=== PATIENT | male | born 1965 | race Caucasian/White ===

== ENCOUNTER → 2017-10-27 | Outpatient (CLI) | payer OTHER ==
--- NOTE | 2017-10-28 08:55 | DIAGNOSTIC IMAGING REPORT ---
LEFT HIP INJECTION UNDER FLUOROSCOPIC GUIDANCE CLINICAL HISTORY: Degenerative joint disease. Left hip steroid injection. PROCEDURE: The risks, benefits, and alternatives to the procedure were discussed with the patient. Written informed consent was obtained. The patient was placed supine on the fluoroscopy table, and a left hip injection was performed under fluoroscopic guidance. The area was prepped and draped in the usual sterile fashion. The skin and soft tissues anesthetized with local 1% lidocaine. The left hip joint was accessed utilizing a 22-gauge needle, and intra-articular positioning was confirmed by injecting a small volume of Optiray 300. The prescribed dosage of 2 cc of betamethasone and 8 cc of 0.5% bupivacaine was then injected into the joint space. The procedure was well tolerated and without immediate complication. The patient left the department in satisfactory condition. FLUOROSCOPY TIME: 14 seconds IMPRESSION: Unremarkable steroid injection of the left hip under fluoroscopic guidance. Electronically signed by: Fredrick Dean M.D. 10/27/2017 11:18 AM Dictated Date/Time: 10/27/2017 11:16 AM
== END | disposition home or self-care (01) ==
LOC: C.RADBC 09:42
PROVIDERS: ATTEND Orthopaedic Surgery Orthopaedic Surgery of the Spine
DX: M25.552 Pain in left hip (principal)

== ENCOUNTER 2019-02-21 06:26 | Inpatient (IN) ==
--- NOTE | 2019-01-30 14:43 | PAT Medication Instructions ---
Medication Instructions Date of Service January 30, 2019 Home Medications multivitamin [Multiple Vitamins] 1 tab PO DAILY DO NOT take the morning of surgery multivitamin [Multiple Vitamins] 1 tab PO DAILY Other Notes If you have any questions please call us at [phone] or [phone] or [phone] or [phone]
--- NOTE | 2019-01-31 08:26 | Anesthesiology Consultation ---
Date of Service January 31, 2019 Assessment & Plan (1) Encounter for pre-operative examination: Note sent to PCP to inform him of CXR results. Chart Review Chart Review: Acceptable Risk for Surgery and Patient seen in Pre Admission Te sting Consults Requested none Teaching & Discussion Pre-Anesthesia Teaching/Discussion Notes: Instructed NPO after midnight before surgery, except medications with 15 cc of water. Medication instructions provided according to the PAT guidelines. History Surgery Operation Date: 02/21/19 09:05 Proposed Procedures p Left Total Hip Arthroplasty - Anurag Magaña MD Height/Weight Height: 5 ft 8 in Weight: 84.4 kg Allergies Allergy/AdvReac Type Severity Reaction Status Date / Time Penicillins Allergy Unknown pt not Unverified 01/25/19 08:26 sure reaction Medications Home Medications Medication Instructions Recorded Confirmed Last Taken multivitamin [Multiple Vitamins] 1 tab PO DAILY 01/25/19 01/25/19 Unknown Past Medical History Medical History Alcohol abuse Osteoarthritis Past Surgical History Surgical History History of tonsillectomy History of wisdom tooth extraction Past Anesthesia History No Hx of Anesthesia Complications and No Family Hx of Anesthesia Complications History of PONV No Motion Sickness Screening History of Motion Sickness: No Social History Smoking Status: Never smoker Do You Dip or Chew Tobacco: Yes (ON OCC - 1 CAN OVER MONTH ON AVERAGE OR LESS - ADVISED NPO) Hx Alcohol Use: Yes Alcohol type: beer alcohol intake frequency: other Alcohol Intake Frequency Comment: 30 CANS A WEEK Hx Substance Use: No substance use type: does not use Exercise / Class Metabolic Activity II 4-5 Yardwork/Stairs/Walk up hill (Able to climb FOS. Denies CP or SOB. 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 ) Review of Systems Patient denies chest pain, shortness of breath, dyspnea on exertion, reflux, co ugh, wheezing, palpitations. +Joint Pain (Hips) Physical Exam Vital Signs BP: 156/94 P: 72 R: 16 T: 97.8 SPO2: 98% on RA ENMT Thyromental Distance: < 3.5 Finger Breadths (3) Mallampati Class: II Neck normal visual inspection, trachea midline and + facial hair (Advised); neck extension not limited Respiratory normal respiratory effort Auscultation: lungs clear to auscultation bilaterally Cardiovascular Rate/Rhythm: regular rate and regular rhythm Heart Sounds: no murmur Vessels: no carotid bruit Neurologic moves all extremities Psychiatric Orientation: alert and oriented x 3 Testing Electrocardiogram Date: 01/31/19 Findings: + NSR @ (68) Chest X-Ray Date: 01/31/19 FINDINGS: The heart is normal in size. There is no focal pulmonary consolidation. There is no failure. There are no pleural effusions. There is a calcified granuloma within the left upper lobe. There is mild hilar fullness and mild adenopathy cannot be excluded. IMPRESSION: 1. Mild hilar fullness. Mild adenopathy cannot be excluded. 2. No evidence of focal pulmonary consolidation. Laboratory Results 01/31/19 08:53 01/31/19 08:53 Blood Type A Positive 01/31/19 08:53 Antibody Screen NEGATIVE 01/31/19 08:53 PT 9.9 Seconds (9.0-12.0) 01/31/19 08:53 INR 1.0 (0.9-1.1) 01/31/19 08:53 APTT 25.8 Seconds (21.0-31.0) 01/31/19 08:53
--- NOTE | 2019-01-31 09:33 | XRay Report ---
XR chest Pre-admission PA/Lat CLINICAL HISTORY: Preoperative chest COMPARISON STUDY: No previous studies for comparison. FINDINGS: The heart is normal in size. There is no focal pulmonary consolidation. There is no failure . There are no pleural effusions. There is a calcified granuloma within the left upper lobe. There is mild hilar fullness and mild adenopathy cannot be excluded.[ IMPRESSION: 1. Mild hilar fullness. Mild adenopathy cannot be excluded. 2. No evidence of focal pulmonary consolidation. Electronically signed by: Fracisco Bagley M.D. 01/31/2019 9:32 AM
[2019-01-31 12:00] LABS: Basophils # (auto) 0.03 K/uL (0-0.2); Basophils % (auto) 0.5 %; Eosinophils # (auto) 0.16 K/uL (0-0.5); Eosinophils % (auto) 2.5 %; Hematocrit (blood only) 38.2 % (42-52); Hemoglobin 13.2 g/dL (14.0-18.0); Immature Granulocytes # (auto) 0.01 K/uL (0.00-0.02); Immature Granulocytes % (auto) 0.2 %; Lymphocytes # (auto) 1.04 K/uL (1.2-3.4); Lymphocytes % (auto) 16.2 %; Mean Corpuscular Hgb Conc 34.6 g/dL (32-36); Mean Corpuscular Volume 88.4 fL (80-100); Monocytes # (auto) 0.65 K/uL (0.11-0.59); Monocytes % (auto) 10.1 %; Neutrophils # (auto) 4.54 K/uL (1.4-6.5); Neutrophils % (auto) 70.5 %; Platelet Count 235 K/uL (130-400); RDW Standard Deviation 42.5 fL (36.4-46.3); Red Blood Count 4.32 M/uL (4.7-6.1); White Blood Count 6.43 K/uL (4.8-10.8)
[2019-01-31 12:08] LABS: BUN Creatinine Ratio 15.9 (10-20); Calcium 9.7 mg/dl (8.5-10.1); Est GFR (Non-African American) 59.5; Potassium 5.1 mmol/L (3.5-5.1)
[2019-01-31 12:23] LABS: Partial Thromboplastin Time 25.8 Seconds (21.0-31.0); Prothrombin Time 9.9 Seconds (9.0-12.0)
--- NOTE | 2019-02-14 13:23 | History and Physical Report ---
DATE OF ADMISSION: 02/21/2019 CHIEF COMPLAINT: Left hip pain. 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 I have seen him in the past for this hip and he gradually got increased pain over the past 3 years. He describes mostly groin and thigh pain. He initially had some back symptoms, but they seem to have calmed down and it is more isolated to his hip now. He did have an intraarticular injection which gave him several days of good relief, but nothing long lasting. He has become more debilitated by the pain. He is starting to have some pain in his right side now as well. He has a limited walking tolerance. The more he walks, the more it hurts. He has difficulty putting his shoes and socks on. He would like to proceed with surgical treatment. PAST MEDICAL HISTORY: Significant for: 1. Lumbar spondylosis. 2. Degenerative spine disease. PAST SURGICAL HISTORY: None. ALLERGIES: PENICILLIN. REACTIONS UNKNOWN. CURRENT MEDICATIONS: None. SOCIAL HISTORY: A 54-year-old male. He lives in [place]. He works for sporting [employer]. He is . One drink per day. FAMILY HISTORY: Noncontributory. REVIEW OF HISTORY: Negative for diabetes, neurologic problems, vascular problems or bleeding disorders. No chest pain or shortness of breath. No history of DVT or PE. No known bleeding problems. PHYSICAL EXAMINATION: GENERAL: Reveals a healthy, pleasant middle-aged male, looks to be in excellent health. HEENT: Benign. NECK: Supple. No lymphadenopathy. LUNGS: Clear to auscultation. HEART: Has regular rate and rhythm. ABDOMEN: Soft, nontender, nondistended. EXTREMITIES: Grossly neurovascularly intact except as follows. Examination of both hips revealed the patient walks with slightly antalgic gait. He is about 1/4 cm short on the left side compared to the right. He has limited hip motion on the left side. He can internally rotate to neutral and external rotation to 20 degrees. He has pain with internal rotation of the left hip. Negative straight leg raise. He is neurologically intact. X-RAYS: X-ray of left hip were reviewed. He has advanced left hip DJD. He has got complete loss of the superior joint space. He has got subchondral sclerosis. This has changed and progressed significantly over the past 2 years. He has also developed some increasing arthritis in his right hip. ASSESSMENT: A 54-year-old fairly active gentleman with advanced left hip degenerative joint disease on the left and moderate disease on the right. He has failed conservative treatment on the left side and would like to have his left hip replaced. PLAN: We talked about treatment. We are going to proceed with left total hip replacement. The risk and benefits of left total hip replacement were explained to the patient including but not limited to DVT, PE, , infection, neurological injury, vascular injury, bleeding problem, pain, limited range of motion, stiffness, failure to relieve symptoms, incomplete relief of symptoms, need for further surgery in the future, fracture, leg length inequality, nerve palsy, etc. The patient understands and desires to proceed. Informed consent was obtained. Undoubtedly he is going to probably need his right hip done at some point in the future. We will do the best we can to make his leg lengths as equal as possible, but he may end up being a little bit long on the left side at least temporarily. This is a result of the arthritis in his right side. As far as discharge plans, he is planned to be discharged to home using [facility]. BETO
[~2019-02-21 06:26] MED LIST: ACETAMINOPHEN 500 MG TAB PO SCH; CEFAZOLIN 2000MG 2,000 MG/15 ML SYR IV SCH; FAMOTIDINE 20 MG TAB PO SCH; GABAPENTIN 300 MG x 3 PO SCH; LR 500ML BOLUS, THEN 15ML/HR IV SCH; LR 60ML/HR IV SCH; METOCLOPRAMIDE HCL 10 MG TABLET PO SCH; SCOPOLAMINE 1.5 MG TDSY TD SCH; TRANEXAMIC ACID 1,000 MG **IV Pre-op IV SCH
[2019-02-21] MEDS ORDERED: BUPIVACAINE 0.5 % 5 MG/1 ML PF 10ML VIAL ONE (06:27)
--- NOTE | 2019-02-21 06:52 | History & Physical Bridge Note ---
Date of Service February 21, 2019 History & Physical Bridge Note I have examined the patient, reviewed the History & Physical and in the interval since the performance of the History & Physical I have noted the following changes of clinical significance: no changes noted
[2019-02-21] MEDS ORDERED: CEFAZOLIN 2000MG 2,000 MG/15 ML SYR IV ONE (07:12)
[2019-02-21] MEDS ORDERED: MIDAZOLAM HCL 1 MG/ML 2ML VIAL ONE (07:26)
[2019-02-21] MEDS ORDERED: MoRPHine SULFATE PF 1 MG/ML 10 ML AMP/VIAL ONE (07:27)
[2019-02-21] MEDS ORDERED: LIDOCAINE HCL 2% 2 ML VIAL/AMP(20MG/ML) INFIL ONE (07:28)
[2019-02-21] MEDS ORDERED: PROPOFOL IV EMULSION 10 MG/ML 20 ML VIAL IV ONE (07:28)
[2019-02-21] MEDS ORDERED: MEPERIDINE HCL 25 MG/ML CARP IV PRN (08:06)
[2019-02-21] MEDS ORDERED: ePHEDrine sulfate 50 MG/ML AMP IV PRN (08:06)
[2019-02-21] MEDS ORDERED: DiphenhydrAMINE HCL 50 MG/ML VIAL IV PRN ×2 (08:06→11:58)
[2019-02-21] MEDS ORDERED: NALOXONE HCL 0.08 MG in SYRINGE 1.8 ML IV PRN (08:06)
[2019-02-21] MEDS ORDERED: LACTATED RINGER'S 500 ML IV PRN (08:06)
[2019-02-21] MEDS ORDERED: MoRPHine SULFATE PF 1 MG/ML 10 ML AMP/VIAL INT SPINAL ONE (08:06)
[2019-02-21] MEDS ORDERED: HYDROmorphone INJ 0.5 MG/0.5 ML SYR IV PRN (08:06)
[2019-02-21] MEDS ORDERED: NALBUPHINE HCL INJ 10 MG/ML AMP IV PRN (08:06)
[2019-02-21] MEDS ORDERED: KETOROLAC 30 MG/ML VIAL IV PRN (08:06)
[2019-02-21] MEDS ORDERED: ONDANSETRON INJ 2 MG/ML 2 ML VIAL IV PRN (08:06)
[2019-02-21] MEDS ORDERED: NALOXONE HCL 0.4 MG/1 ML VIAL/CARP IV PRN ×2 (08:06→11:58)
[2019-02-21] MEDS ORDERED: MoRPHine SULFATE 2 MG/ML CARP IV PRN (08:06)
[2019-02-21] MEDS ORDERED: NALOXONE HCL 1 MG in SODIUM CHLORIDE 0.9% 1000ML 1,000 ML IV PRN (08:06)
[2019-02-21] MEDS ORDERED: NO NARCOTICS OR SEDATIVES SCH (08:15)
[2019-02-21] MEDS ORDERED: DC INTRASPINAL MORPHINE SCH (08:15)
[2019-02-21] MEDS ORDERED: SODIUM CHLORIDE 0.9% 1000ML 1,000 ML IV SCH (08:15)
[2019-02-21] MEDS ORDERED: BUPIVACAINE/EPINEPHRINE 0.5% MPF 1:200,000 30 ML VIAL ONE (08:57)
[2019-02-21] MEDS ORDERED: BACITRACIN INJ 50,000 UNIT VIAL ONE (08:58)
--- NOTE | 2019-02-21 10:45 | Post Operative Brief Note ---
Immediate Post Op Note v1 Date of Surgery February 21, 2019 Pre & Post Diagnosis Operation Date: 02/21/19 08:50 Pre-Op Diagnosis: LEFT HIP DEGENERATIVE JOINT DISEASE Post-Op Diagnosis: LEFT HIP DEGENERATIVE JOINT DISEASE Procedure Operation Date: 02/21/19 08:50 Actual Procedures p Left Total Hip Arthroplasty, Uncemented(Left) - Anurag Magaña MD Surgeon Anurag Magaña MD Operator Maintainer Peg, PAC Estimated Blood Loss 300 Findings Consistent with Post-Op Diagnosis Fluids 1700 cc Specimens Left Hip Drains Varghese Catheter Anesthesia Type Spinal MAC Complications none Disposition Accompanied Patient To Recovery: Yes Disposition: Recovery Room
--- NOTE | 2019-02-21 11:01 | XRay Report ---
XR hip 1V LT w pelvis CLINICAL HISTORY: IN PACU - A/P PELVIS and LATERAL HIP COMPARISON: Postoperative evaluation DISCUSSION: Anatomic alignment post total left hip arthroplasty. Good contact between prosthetic and underlying bone. Expected soft tissue postoperative change. IMPRESSION: Anatomic alignment post total left hip arthroplasty. The above report was generated using voice recognition software. It may contain grammatical, syntax or spelling errors. Electronically signed by: Tesfaye Marsh M.D. 02/21/2019 10:59 AM
[2019-02-21] MEDS ORDERED: BISACODYL 10 MG SUPP PR PRN (11:58)
[2019-02-21] MEDS ORDERED: ALUMINUM/MAGNESIUM SUSP 30 ML UDC PO PRN (11:58)
[2019-02-21] MEDS ORDERED: TAMSULOSIN HCL 0.4 MG CAP PO PRN (11:58)
[2019-02-21] MEDS ORDERED: MAGNESIUM HYDROXIDE SUSP 30 ML UDC PO PRN (11:58)
--- NOTE | 2019-02-21 11:59 | Anesthesiology Progress Note ---
Date of Service February 21, 2019 Anesthesia Post Procedure Vital Signs Vital Signs: Temp Pulse Pulse Resp BP Pulse Ox 02/21/19 11:40 58 L 21 136/85 97 02/21/19 11:30 54 L 14 132/80 98 02/21/19 11:20 52 L 14 120/67 97 02/21/19 11:10 36.4 C L 54 L 16 115/80 98 02/21/19 11:00 62 22 104/79 100 02/21/19 10:50 58 L 12 97/61 L 95 02/21/19 10:42 37.2 C 65 14 100/62 92 02/21/19 07:19 36.8 C 83 16 169/99 H 96 Transfer of Care Handoff Completed per policy Notes Mental Status: alert / awake / arousable and participated in evaluation Patient Amnestic to Procedure: Yes Nausea / Vomiting: adequately controlled Pain: adequately controlled Airway Patency, RR, SpO2: stable & adequate BP & HR: stable & adequate Hydration State: stable & adequate Neuraxial Anesthesia: was administered and sensory block is resolving Anesthetic Complications: no major complications apparent
[2019-02-21] MEDS: SODIUM CHLORIDE 0.9% 1000ML 1,000 ML IV SCH ×2 (13:33→21:51)
[2019-02-21] MEDS: ACETAMINOPHEN 500 MG TAB PO SCH ×2 (13:35→21:51)
[2019-02-21] MEDS: KETOROLAC 30 MG/ML VIAL IV SCH ×2 (13:35→19:28)
--- NOTE | 2019-02-21 15:23 | Progress Note ---
DATE: 02/21/2019 SUBJECTIVE: A 54-year-old gentleman postop from a left total hip replacement. He is doing well. Not having any pain yet. No chest pain or shortness of breath. Not feeling dizzy or lightheaded. OBJECTIVE: VITAL SIGNS: Temperature 36.4. Vital signs stable. GENERAL: Physical examination shows a pleasant, middle-aged male. He is sitting up in his bed and looks quite comfortable. LUNGS: Clear to auscultation. HEART: Regular rate and rhythm. ABDOMEN: Soft, nontender, nondistended. EXTREMITIES: Grossly neurovascularly intact except as follows: Examination of the left lower extremity reveals the leg lengths to be equal. Hip is located. He can dorsiflex and plantarflex his foot appropriately. He is neurologically intact. X-RAYS: X-ray of left hip from recovery room reviewed. It shows left uncemented total hip arthroplasty. Components looked to be in good position. No signs of problems. ASSESSMENT: A 54-year-old gentleman postop from a left hip replacement, doing well. His pain is controlled. Hip is located. He is neurologically intact. PLAN: 1. DVT prophylaxis including thigh-high TEDs, SCDs, and aspirin twice a day. 2. PT/OT. Weight bear as tolerated. Left total hip protocol. 3. Pain control, doing pretty well with current pain regimen. 4. IV antibiotics x24 hours. 5. Disposition: Plan to discharge to home with some home health once adequately recovered.
[2019-02-21] MEDS ORDERED: TRANEXAMIC ACID 1,000 MG in 0.9 % SODIUM CHLORIDE 100 ML IV SCH (16:46)
[2019-02-21] MEDS: CHECK SCOPOLAMINE PATCH PLACEMENT SCH (17:03)
[2019-02-21] MEDS: ASCORBIC ACID 500 MG TAB PO SCH (17:04)
[2019-02-21] MEDS: FERROUS GLUCONATE 324 MG TAB PO SCH (17:04)
[2019-02-21] MEDS: CEFAZOLIN 2000MG 2,000 MG/15 ML SYR IV SCH (17:12)
[2019-02-21] MEDS ORDERED: SENNA 8.6 MG TAB PO SCH (21:00)
[2019-02-21] MEDS: ASPIRIN 81 MG ECTAB PO SCH (21:52)
[2019-02-21] MEDS: DOCUSATE SODIUM 100 MG CAP PO SCH (21:53)
--- NOTE | 2019-02-21 22:53 | Operative Report ---
DATE OF OPERATION: 02/21/2019 SURGEON: Anurag Magaña MD MECHANICAL SERVICE REPRESENTATIVE: DONAVON Juan PREOPERATIVE DIAGNOSIS: Left hip degenerative joint disease. POSTOPERATIVE DIAGNOSIS: Left hip degenerative joint disease. PROCEDURE PERFORMED: Left uncemented ceramic on highly cross-linked polyethylene total hip arthroplasty. COMPLICATIONS: None. ESTIMATED BLOOD LOSS: 300 mL. FLUID REPLACEMENT: 1700 mL crystalloid fluid replacement. ANESTHESIA: Spinal. DRAINS: None. SPECIMENS: Left femoral head sent for Pathology. OPERATIVE INDICATIONS: The patient is a 54-year-old very active gentleman who has had a several year history of increasing left hip pain and discomfort. He describes it has gotten worse over time. He had failed all conservative care. X-rays revealed advanced left hip DJD. He elected to proceed with surgical treatment. OPERATIVE FINDINGS: Revealed left hip DJD. There are extensive grade 4 changes of the femoral head and acetabulum. Some moderate size anterior acetabular osteophytes. He has a fairly high offset femoral architecture. OPERATIVE IMPLANTS: Operative implants consisted of, 1. Biomet G7 size 56 mm acetabular shell. 2. An apex hole eliminator. 3. A 6.5 cancellous acetabular screws, 1 at 35 mm length and 1 at 25 mm length. 4. A highly cross-linked polyethylene liner with 56 mm outer diameter, 36 mm inner diameter with a jimenez placed inferior and posterior. 5. DePuy Corail size 12 KLA femoral stem. 6. A +8.5/36 mm ceramic articular ball. OPERATIVE PROCEDURE: The patient was taken to the Operating Room, identified and placed on Operating Room table in supine position. All contact areas were appropriately padded. I.V. antibiotics were provided by Anesthesia team. A spinal anesthetic had been provided in the Holding Area. Varghese catheter was placed in sterile fashion. The patient was placed in the right lateral decubitus position. An axillary roll was placed. Stlberg hip positioner was used for positioning. Left hip and leg were then prepped and draped in usual sterile fashion. A posterolateral approach to the left hip was then performed through a curvilinear incision centered over the greater trochanter. Sharp dissection was carried through subcutaneous tissues down to the level of the IT band. The IT band and the gluteal fascia were then incised longitudinally in line with skin incision. The underlying greater trochanteric bursa was excised. The piriformis and external rotators were tagged and taken off the posterior aspect of the hip joint capsule. Great care was taken throughout the procedure to protect the sciatic nerve at all times. Posterior capsulotomy was then performed. I left a large flap for later repair. Hip was internally rotated and dislocated. The femoral neck osteotomy cut was made with the final cut 10 mm above the lesser trochanter. Femoral head was removed and sent for Pathology. The femur was retracted anteriorly. Attention was then drawn to the acetabulum. The acetabular labrum was excised. The pulvinar fat was excised. Sequential reaming of the acetabulum was then performed beginning with a size 47 progressing up to 55. A 56 mm Biomet G7 acetabular shell was then placed in about 40 degrees of lateral opening and 20 degrees of anteversion. It was fixed with two 6.5 cancellous acetabular screws. A trial liner was placed. Some anterior osteophytes were removed. Attention was then drawn to the femur. The proximal femur was entered with a cookie cutter followed by canal finder. I then broached beginning with a size 8 and progressed up to 12. We got excellent fit at 12. Calcar reamer was used to smoothen off the calcar. I then trialed the hip and +8.5/36 mm articular ball seemed to recreate soft tissue tension appropriate, leg length equality and stability. Hip was fully stable in full extension and external rotation, flexion to 90 degrees and internal rotation to 50+ degrees. I did elect to place a jimenez inferior and posterior to maximize hip stability in flexion. I did use a slightly longer neck length due to the soft tissue tension created by the medialization of the cup. We elected to place these implants. All trial implants were removed. An apex hole eliminator was placed. Highly cross-linked polyethylene liner with jimenez placed inferior and posterior was impacted in position. A DePuy Corail size 12 KLA femoral stem was impacted in position. A +8.5/36 mm ceramic articular ball was placed. Hip was located and once again found to be stable. Attention was then drawn toward closing. The wound was irrigated with copious amount of pulsatile lavage solution.. I did inject locally with 60 mL of 0.5% Marcaine with epinephrine. Posterior capsule and external rotators were repaired through drill holes in the posterior trochanter with #2 Ti-Cron suture. The IT band and gluteal fascia were then closed with #1 PDS suture in running fashion. The subcutaneous tissue was then closed in 2 layers with deep layer #1 Vicryl suture and subcutaneous tissue with 2-0 Dexon suture in a buried interrupted fashion. The skin was closed with skin slade. Leg was then cleaned, dried and a sterile dressing of Xeroform, 4 x 4's, sterile ABD pad and foam tape was applied. The patient then transferred to the Recovery Room in a stable condition. The patient tolerated the procedure well with no complications. All needle and sponge counts were correct at the end of the operation. I attest to the content of the Intraoperative Record and any orders documented therein. Any exception s are noted below.
[2019-02-22] MEDS: CEFAZOLIN 2000MG 2,000 MG/15 ML SYR IV SCH (00:06)
[2019-02-22] MEDS: CHECK SCOPOLAMINE PATCH PLACEMENT SCH (00:06)
[2019-02-22] MEDS ORDERED: ONDANSETRON INJ 2 MG/ML 2 ML VIAL IV PRN (02:06)
[2019-02-22] MEDS ORDERED: DiphenhydrAMINE HCL 50 MG/ML VIAL IV PRN (02:06)
[2019-02-22] MEDS ORDERED: OXYCODONE HCL IR 5 MG TAB (IMMEDIATE RELEASE) PO PRN (02:06)
[2019-02-22] MEDS ORDERED: METOCLOPRAMIDE HCL INJ 5 MG/ML 2 ML VIAL IV PRN (02:06)
[2019-02-22] MEDS ORDERED: HYDROmorphone INJ 0.5 MG/0.5 ML SYR IV PRN (02:06)
[2019-02-22] MEDS: KETOROLAC 30 MG/ML VIAL IV SCH ×2 (02:43→08:31)
[2019-02-22] MEDS: ACETAMINOPHEN 500 MG TAB PO SCH (05:54)
[2019-02-22 06:39] LABS: Basophils # (auto) 0.02 K/uL (0-0.2); Basophils % (auto) 0.3 %; Eosinophils # (auto) 0.15 K/uL (0-0.5); Eosinophils % (auto) 2.4 %; Hematocrit (blood only) 30.4 % (42-52); Hemoglobin 10.6 g/dL (14.0-18.0); Immature Granulocytes # (auto) 0.01 K/uL (0.00-0.02); Immature Granulocytes % (auto) 0.2 %; Lymphocytes # (auto) 0.75 K/uL (1.2-3.4); Lymphocytes % (auto) 11.9 %; Mean Corpuscular Hgb Conc 34.9 g/dL (32-36); Mean Corpuscular Volume 87.4 fL (80-100); Mean Platelet Volume 10.2 fL (7.4-10.4); Monocytes # (auto) 0.54 K/uL (0.11-0.59); Monocytes % (auto) 8.6 %; Neutrophils # (auto) 4.82 K/uL (1.4-6.5); Neutrophils % (auto) 76.6 %; Platelet Count 155 K/uL (130-400); RDW Standard Deviation 41.6 fL (36.4-46.3); Red Blood Count 3.48 M/uL (4.7-6.1); White Blood Count 6.29 K/uL (4.8-10.8)
[2019-02-22] MEDS: SODIUM CHLORIDE 0.9% 1000ML 1,000 ML IV SCH (07:13)
[2019-02-22 07:18] LABS: BUN Creatinine Ratio 15.1 (10-20); Calcium 8.2 mg/dl (8.5-10.1); Creatinine Clr Calc Pharmacy 63.5 ml/min; Est GFR (African American) 65.4; Est GFR (Non-African American) 56.5; Potassium 4.3 mmol/L (3.5-5.1)
--- NOTE | 2019-02-22 08:05 | Anesthesiology Progress Note ---
Date of Service February 22, 2019 Anesthesia Post Procedure Vital Signs Vital Signs: Temp Pulse Pulse Pulse Resp BP BP 02/22/19 07:34 37.2 C 70 18 146/92 H 02/22/19 03:51 36.8 C 66 14 128/76 02/22/19 01:55 16 02/22/19 00:55 16 02/21/19 23:55 16 02/21/19 23:46 36.8 C 59 L 14 120/68 02/21/19 22:54 14 02/21/19 21:50 18 02/21/19 20:55 16 02/21/19 19:55 18 02/21/19 19:00 37.3 C 68 16 135/86 02/21/19 18:55 16 02/21/19 17:55 16 02/21/19 16:55 16 02/21/19 15:55 16 02/21/19 15:10 37 C 64 16 135/93 02/21/19 15:00 18 02/21/19 14:04 65 19 135/85 02/21/19 14:00 16 02/21/19 12:55 15 02/21/19 12:53 36.4 C L 58 L 18 142/86 H 02/21/19 12:28 52 L 16 136/84 02/21/19 11:55 36.6 C 66 18 127/85 02/21/19 11:40 58 L 21 136/85 02/21/19 11:30 54 L 14 132/80 02/21/19 11:20 52 L 14 120/67 02/21/19 11:10 36.4 C L 54 L 16 115/80 02/21/19 11:00 62 22 104/79 02/21/19 10:50 58 L 12 97/61 L 02/21/19 10:42 37.2 C 65 14 100/62 Pulse Ox Pulse Ox 02/22/19 07:34 94 02/22/19 03:51 95 02/22/19 01:55 95 02/22/19 00:55 91 02/21/19 23:55 94 02/21/19 23:46 95 02/21/19 22:54 93 02/21/19 21:50 95 02/21/19 20:55 96 02/21/19 19:55 95 02/21/19 19:00 95 02/21/19 18:55 96 02/21/19 17:55 97 02/21/19 16:55 97 02/21/19 15:55 96 02/21/19 15:10 97 02/21/19 15:00 96 02/21/19 14:04 97 02/21/19 14:00 95 02/21/19 12:55 93 02/21/19 12:53 96 02/21/19 12:28 96 02/21/19 11:55 95 95 02/21/19 11:40 97 02/21/19 11:30 98 02/21/19 11:20 97 02/21/19 11:10 98 02/21/19 11:00 100 02/21/19 10:50 95 02/21/19 10:42 92 Notes Mental Status: alert / awake / arousable and participated in evaluation Patient Amnestic to Procedure: Yes Nausea / Vomiting: adequately controlled Pain: adequately controlled Airway Patency, RR, SpO2: stable & adequate BP & HR: stable & adequate Hydration State: stable & adequate Anesthetic Complications: no major complications apparent and Pt Satisfied with anesthetic care
--- NOTE | 2019-02-22 08:21 | Progress Note ---
DATE: 02/22/2019 SUBJECTIVE: A 54-year-old gentleman postop day 1 from a left hip replacement. He is doing pretty well. Pain is controlled. No chest pain or shortness of breath. Not feeling dizzy or lightheaded. OBJECTIVE: VITAL SIGNS: Temperature 36.8. Vital signs stable. GENERAL: Physical examination shows a pleasant, middle-aged male. Lying in bed, looks comfortable. EXTREMITIES: Leg lengths were equal. Dressing is clean, dry and intact. Thigh is soft and supple. He is neurologically intact. LABORATORY DATA: Hemoglobin is 10.6. Hematocrit 30.4. Electrolytes are stable. ASSESSMENT: A 54-year-old gentleman postop day 1 from a left hip replacement, doing pretty well. His pain is controlled. Hip is located. He is neurologically intact. PLAN: 1. DVT prophylaxis including thigh-high TEDs, SCDs, and aspirin twice a day. 2. PT/OT. Weight bear as tolerated. Left total hip protocol. 3. Pain control, doing pretty well with current pain regimen. 4. Disposition: Plan to discharge to home with some home health. He will see how he does today with therapy about discharge.
[2019-02-22] MEDS: ASCORBIC ACID 500 MG TAB PO SCH (08:31)
[2019-02-22] MEDS: DOCUSATE SODIUM 100 MG CAP PO SCH (08:31)
[2019-02-22] MEDS: FERROUS GLUCONATE 324 MG TAB PO SCH (08:31)
[2019-02-22] MEDS: ASPIRIN 81 MG ECTAB PO SCH (08:31)
[2019-02-22] MEDS ORDERED: MULTIVITAMIN TAB PO SCH ×2 (09:00)
[2019-02-22] MEDS ORDERED: TAPENTADOL HCL ER 50 MG TABCR PO SCH (09:00)
--- NOTE | 2019-02-28 14:35 | Discharge Summary ---
ADMITTING PHYSICIAN AND SURGEON: Dr. Anurag Magaña. ADMITTING DIAGNOSIS: Left hip degenerative joint disease. SURGERY PERFORMED: Left total hip arthroplasty. SECONDARY DIAGNOSES: Lumbar spondylosis. Degenerative spine disease. CONSULTS: None obtained. HISTORY AND PHYSICAL EXAMINATION: Well documented in the patient's chart. HOSPITAL COURSE: The patient was admitted on 02/21/2019 underwent total hip arthroplasty, tolerated the procedure well and there were no complications. He was transferred to the PACU postoperatively and later to the orthopedic for further care. He was given Ancef for antibiotic prophylaxis, GUY stockings, SCDs and aspirin for DVT prophylaxis. Hemoglobin, hematocrit and vital signs were monitored during his hospital stay and remained stable, did not require any blood transfusions. There were no complications. By postoperative day 1, he was tolerating a regular diet, pain was controlled with oral pain medicine. He was participating in physical therapy. Postop day 1, he was discharged home, set up with home health services, given printed discharge instructions including new prescriptions for extra strength Tylenol, aspirin, iron supplement and oxycodone. Continue multivitamin. Physical therapy, weightbearing as tolerated, total hip precautions, continue GUY stockings. Followup in approximately 2 weeks postop, or sooner if there are any problems or concerns.
== END 2019-02-22 12:55 | disposition home health service (06) | DRG 470 ==
LOC: ASU 06:26 → 3E 10:49

== ENCOUNTER 2019-10-02 05:03 | Inpatient (IN) ==
--- NOTE | 2019-09-12 13:14 | Anesthesiology Consultation ---
Date of Service September 12, 2019 Assessment & Plan Chart Review Chart Review: Acceptable Risk for Surgery and Patient NOT seen in Pre Admission Testing Consults Requested none ASA ASA3 History Surgery Operation Date: 10/02/19 10:40 Proposed Procedures p Right Total Hip Replacement - Anurag Magaña MD Height/Weight Height: 5 ft 8 in Weight: 83.915 kg Allergies Allergy/AdvReac Type Severity Reaction Status Date / Time Penicillins Allergy Unknown pt not Verified 09/06/19 08:24 sure reaction Medications Home Medications Medication Instructions Recorded Confirmed Last Taken multivitamin [Multiple Vitamins] 1 tab PO QAM 01/25/19 09/06/19 04/04/19 08:00 cholecalciferol (vitamin D3) 1,000 unit PO QAM 05/02/19 09/06/19 Unknown [Vitamin D3] clindamycin HCl 150 mg PO UD 09/06/19 09/06/19 Unknown Past Medical History Medical History Alcohol abuse 30 cans/week History of anesthesia reaction swelling neck after video mediastinoscopy, not sure if from anesthesia or fro m actual surgical procedure---no breathing problems, no further issues Osteoarthritis Exercise / Class Metabolic Activity II 4-5 Yardwork/Stairs/Walk up hill Past Family History Family History Brother Family history of diabetes mellitus Family hx colonic polyps Other No family history of adverse response to anesthesia Past Surgical History Surgical History History of lung surgery video mediastinoscopy d/t enlarged lymph nodes 04/05/19 Dr. Vaca History of tonsillectomy History of total hip arthroplasty LEFT spinal anesthetic History of wisdom tooth extraction Past Anesthesia History No Hx of Anesthesia Complications and No Family Hx of Anesthesia Complications History of PONV No Hx of PONV and No Hx of Motion Sickness Social History Smoking Status: Never smoker tobacco type: smokeless tobacco Do You Dip or Chew Tobacco: Yes (ocas/ advised) Hx Alcohol Use: Yes Alcohol type: beer alcohol intake frequency: 0-2 drinks per day Hx Substance Use: No substance use type: does not use Testing Laboratory Results WBC: 6.6 Hc.3 Hct: 36.3 PLATELETS: 209 SODIUM: 139 POTASSIUM: 4.5 CHLORIDE: 101 CO2: 27 BUN: 25 CREATININE: 1.58 GLUCOSE: 86 PT: 10.2 PTT: 27 INR: 1.0 UA: TYPE AND SCREEN: Electrocardiogram Date: 01/31/19 Findings: + NSR @ (at 68) Chest X-Ray Date: 04/05/19 Findings: + NAD
--- NOTE | 2019-09-29 12:43 | History and Physical Report ---
DATE OF ADMISSION: 10/02/2019 CHIEF COMPLAINT: Right hip pain. HISTORY OF PRESENT ILLNESS: The patient is a 54-year-old male known to me from a previous left hip replacement done back in February. He has got a fairly long history of hip pain and discomfort and his left hip is doing great now that has been replaced. He has become more and more debilitated by his right hip pain. He describes groin pain, thigh pain radiating down to his knee. He has difficulty putting his shoes and socks on. He has nighttime discomfort. He has become more active with his left hip, the right hip has bothered him more. He would like to have this fixed. PAST MEDICAL HISTORY: Noncontributory. PAST SURGICAL HISTORY: Include left total hip replacement done in 02/23/2019. ALLERGIES: PENICILLIN, reactions unknown. This is a childhood allergy. CURRENT MEDICATIONS: Include daily vitamins. SOCIAL HISTORY: A 54-year-old male. He lives in [place]. Very active. He does not smoke. FAMILY HISTORY: Noncontributory. REVIEW OF HISTORY: Negative for diabetes, neurologic problem, vascular problems or bleeding disorders. Denies any chest pain or shortness of breath. No history of DVT or PE. No known bleeding problems. PHYSICAL EXAMINATION: GENERAL: Shows a healthy, pleasant middle-aged male. Looks to be in excellent health. HEENT: Benign. NECK: Supple, no lymphadenopathy. LUNGS: Clear to auscultation. HEART: Regular rate and rhythm. ABDOMEN: Soft, nontender, nondistended. EXTREMITIES: Grossly neurovascularly intact except as follows: Examination of the right hip reveals the patient who walks with a fairly minimal limp. Examination of the right hip reveals the leg lengths to be clinically equal. He does have pain and stiffness with hip internal rotation. He can internally rotate to neutral, external rotation at 30 degrees. Negative straight leg raise. NEUROLOGIC: He is neurologically intact. X-RAYS: X-rays of the right hip were reviewed. Shows advanced right hip DJD. He has got complete loss of the superior joint space. He has got Cam type impingement. The left hip replacement looks to be in good position. ASSESSMENT: A 54-year-old gentleman now 7 months out from a left total hip replacement, doing well with advanced right hip arthritis, unresponsive to conservative treatment. He has become more active. His right hip has been bothering more. He would like to have his right hip replaced. PLAN: We will take him to the operating room and do a right total hip replacement. The risks and benefits of this procedure were explained to the patient including but not limited to DVT, PE, , infection, neurological injury, vascular injury, bleeding problem, pain, limited range of motion, stiffness, failure to relieve symptoms, incomplete relief of symptoms, fracture, leg length inequality, nerve palsy, etc. The patient understands and desires to proceed. Informed consent was obtained. I did talk to him about leg lengths and we will do the best we can to make them equal. He is planning to be discharged to home using [facility] similar to last time.
[2019-10-02] MEDS ORDERED: LR 60ML/HR IV SCH (06:00)
[2019-10-02] MEDS ORDERED: LR 500ML BOLUS IV SCH (06:00)
[2019-10-02] MEDS ORDERED: FAMOTIDINE 20 MG TAB PO SCH (06:00)
[2019-10-02] MEDS ORDERED: SCOPOLAMINE 1.5 MG TDSY TD SCH (06:00)
[2019-10-02] MEDS ORDERED: METOCLOPRAMIDE HCL 10 MG TABLET PO SCH (06:00)
[2019-10-02] MEDS ORDERED: TRANEXAMIC ACID 1,000 MG **IV Pre-op IV SCH (06:00)
[2019-10-02] MEDS ORDERED: CEFAZOLIN 2000MG 2,000 MG/15 ML SYR IV SCH (06:00)
[2019-10-02] MEDS ORDERED: GABAPENTIN 600 MG DOSE PO SCH (06:00)
[2019-10-02] MEDS ORDERED: ACETAMINOPHEN 500 MG TAB PO SCH (06:00)
[2019-10-02] MEDS ORDERED: BUPIVACAINE 0.5 % 5 MG/1 ML PF 10ML VIAL ONE (06:28)
[2019-10-02] MEDS ORDERED: MIDAZOLAM HCL 1 MG/ML 2ML VIAL ONE (06:29)
[2019-10-02] MEDS ORDERED: fentaNYL citrate 100 MCG/2 ML VIAL ONE (06:29)
[2019-10-02] MEDS ORDERED: EPINEPHrine INJ 1 MG/ML AMP ONE (06:31)
[2019-10-02] MEDS ORDERED: BACITRACIN INJ 50,000 UNIT VIAL ONE (06:31)
[2019-10-02] MEDS ORDERED: BUPIVACAINE 0.5 % 5 MG/1 ML MPF 30ML VIAL ONE (06:31)
[2019-10-02] MEDS ORDERED: MoRPHine SULFATE PF 1 MG/ML 10 ML AMP/VIAL ONE (06:45)
--- NOTE | 2019-10-02 06:56 | History & Physical Bridge Note ---
Date of Service October 02, 2019 History & Physical Bridge Note I have examined the patient, reviewed the History & Physical and in the interval since the performance of the History & Physical I have noted the following changes of clinical significance: no changes noted
[2019-10-02] MEDS ORDERED: DiphenhydrAMINE HCL 50 MG/ML VIAL IV PRN (06:57)
[2019-10-02] MEDS ORDERED: NALOXONE HCL 0.08 MG in SYRINGE 1.8 ML IV PRN (06:57)
[2019-10-02] MEDS ORDERED: ATROPINE SULFATE 0.1 MG/ML 10ML SYR IV PRN (06:57)
[2019-10-02] MEDS ORDERED: MoRPHine SULFATE PF 1 MG/ML 10 ML AMP/VIAL INT SPINAL ONE (06:57)
[2019-10-02] MEDS ORDERED: LACTATED RINGER'S 500 ML IV PRN (06:57)
[2019-10-02] MEDS ORDERED: NALOXONE HCL 0.4 MG/1 ML VIAL/CARP IV PRN ×2 (06:57→09:55)
[2019-10-02] MEDS ORDERED: ONDANSETRON INJ 2 MG/ML 2 ML VIAL IV PRN (06:57)
[2019-10-02] MEDS ORDERED: NALOXONE HCL 1 MG in SODIUM CHLORIDE 0.9% 1000ML 1,000 ML IV PRN (06:57)
[2019-10-02] MEDS ORDERED: NALBUPHINE HCL INJ 10 MG/ML AMP IV PRN (06:57)
[2019-10-02] MEDS ORDERED: HYDROmorphone INJ 0.5 MG/0.5 ML SYR IV PRN (06:57)
[2019-10-02] MEDS ORDERED: MoRPHine SULFATE 2 MG/ML CARP IV PRN (06:57)
[2019-10-02] MEDS ORDERED: ePHEDrine sulfate 50 MG/ML AMP IV PRN ×2 (06:57)
[2019-10-02] MEDS ORDERED: DC INTRASPINAL MORPHINE SCH (07:00)
[2019-10-02] MEDS ORDERED: NO NARCOTICS OR SEDATIVES SCH (07:00)
[2019-10-02] MEDS ORDERED: PROPOFOL IV EMULSION 10 MG/ML 20 ML VIAL IV ONE (07:24)
[2019-10-02] MEDS ORDERED: PHENYLEPHRINE HCL 10 MG/ML VIAL ONE (07:24)
[2019-10-02] MEDS ORDERED: ePHEDrine sulfate 50 MG/ML AMP ONE (07:57)
--- NOTE | 2019-10-02 08:27 | Post Operative Brief Note ---
PG Immediate Post Op with CF Date of Surgery October 02, 2019 Pre & Post Diagnosis Operation Date: 10/02/19 07:00 Pre-Op Diagnosis: Right Hip Degenerative Joint Disease Post-Op Diagnosis: Right Hip Degenerative Joint Disease I identified the patient and participated in the time-out.: Yes Procedure Operation Date: 10/02/19 07:00 Actual Procedures p Right Total Hip Arthroplasty, Uncemented(Right) - Anurag Magaña MD Surgeon Anurag Magaña MD Haunted History Tour Guide Peg, PAC Estimated Blood Loss 200 Findings Consistent with Post-Op Diagnosis Fluids 1400 cc Specimens Specimen Description: Permanent Specimen A: Right femoral head Drains Varghese Catheter Anesthesia Type Spinal MAC Complications none Disposition Disposition: Recovery Room
--- NOTE | 2019-10-02 08:43 | Operative Report ---
Post Operative Report Pre & Post Diagnosis Operation Date: 10/02/19 07:00 Pre-Op Diagnosis: Right Hip Degenerative Joint Disease Post-Op Diagnosis: Right Hip Degenerative Joint Disease I identified the patient and participated in the time-out.: Yes Procedure Operation Date: 10/02/19 07:00 Actual Procedures p Right Total Hip Arthroplasty, Uncemented(Right) - Anurag Magaña MD Surgeon Anurag Magaña MD Systems Administration Analyst Peg, PAC Estimated Blood Loss 200 Findings Consistent with Post-Op Diagnosis Operative findings revealed advanced right hip DJD. He extensive grade 4 [id number] disease of the femoral head and acetabulum. He had a large medial acetabular osteophyte. Moderate sized joint effusion. Diffuse osteophytes around the femoral head. Fluids 1400 cc Specimens Right femoral head sent for pathology. Drains None. Anesthesia Type Spinal MAC Complications none Disposition Accompanied Patient To Recovery: Yes Disposition: Recovery Room Indications Patient is a 54-year-old very active gentleman with a long history of bilateral pain discomfort. He underwent a left hip replacement about 7 months ago and is recovered quite nicely from that. As he is increase his activities he is developed increased pain discomfort in his right hip. He failed conservative treatment. He elected to a total hip arthroplasty. Description of Procedure Operative implants consisted of: 1. Biomet G7 size 56 mm acetabular shell. 2. Reynolds hole eliminator. 3. 6.5 cancellus acetabular screws 35 mm length and 25 mm length. 4. Highly cross-linked polyethylene liner with a 56 mm outer diameter and 36 mm inner diameter. 5. [place] Corail size 11 KLA femoral stem. 6. +8.5/36 mm ceramic articular ball. Patient was taken to the operating room identified and placed on the operating table supine position protectors were properly padded. IV antibiotics were provided by anesthesia team. A spinal anesthetic had been implemented in the holding area. Varghese catheter was placed in sterile fashion. Patient then placed in the left lateral decubitus position. An axillary roll was placed. The Stulberg hip positioner was used for positioning. The right hip and leg were then prepped and draped in usual sterile fashion. A posterior lateral approach of the right hip was then performed to a curvilinear incision centered over the greater trochanter. Sharp passes cut through subcutaneous tissue down to level the IT band gluteal fascia the IT band gluteal fascia then incised longitudinally in line with skin incision. The underlying greater bursa was excised. The piriformis and external rotators were tagged and taken off the posterior aspect of the hip joint capsule. Great care was taken throughout the procedure to protect the sciatic nerve at all times. Posterior capsulotomy was then performed leaving a large flap for later repair. Hip was internally rotated and dislocated. Femoral neck osteotomy cut was made with Final Cut 10 mm above the lesser trochanter. Femoral head was removed and sent for pathology. The femur was retracted anteriorly. Attention drawn the acetabulum. The acetabular labrum was excised. The pulmonary fat was excised. Sequential reaming the acetabular was then performed begin with a size 47 progressing up to 55. A 56 mm Biomet G7 acetabular shell was then placed in about 40 degrees lateral opening and 20 degrees of anteversion. We did medialize this quite a bit due to the large medial osteophyte. Trial liner was placed. The cup was secured with two 6.5 cancellus acetabular screws. Attention drawn to the femur. The proximal femur was done with a cookie-cutter followed by canal finder. Then broached begin the size 8 and progressing up to 11. We got excellent fit and 11. Calcar reamer was used smooth and off the calcar. Then trialed the hip. The the hip was stable with a +5 articular ball but soft tissue tension was lax due to the medialization of the acetabulum. We placed an 8.5 oral articular ball. Hip was fully stable in full extension and external rotation flexion to 90 degrees internal rotation over 60 degrees. Soft tissue tension was still a bit lax but it was extremely stable and these were the same size implants as on the opposite side. I elected to place these implants. All trial implants were removed. An apex hole eliminator was placed. Highly cross-linked polyethylene liner was placed. A [place] Corail size 11 KLA femoral stem was impacted in position. +8.5/36 mm ceramic articular ball was placed. Hip was located once again found to be stable. Attention turned toward closing. New breath wounds irrigated cups out to pulsatile lavage solution. I did inject locally with 60 cc of half percent Marcaine with epinephrine. The posterior capsule and external rotators were then repaired through drill holes in the posterior trochanter with #2 Tycron suture. The IT band gluteal fascia then closed in 1 PDS suture running fashion subcutaneous tissue then closed with 2 layers with a deep layer #1 Vicryl suture the subcutaneous tissues with 2-0 Dexon suture in a buried interrupted fashion the skin was closed skin slade. Leg was then cleaned dried and sterile dressing composed Xeroform, 4 x 4's, sterile ABD pads and foam tape were applied. Patient then transferred to the recovery room in stable condition. Patient tolerated procedure well and there were no complications. I attest to the content of the Intraoperative Record and any orders documented therein. Any exceptions are noted below.
--- NOTE | 2019-10-02 08:57 | XRay Report ---
XR hip 1V RT w pelvis CLINICAL HISTORY: 54 years-old Male presenting with IN PACU - A/P PELVIS and LATERAL HIP . TECHNIQUE: Frontal view of the pelvis and crosstable lateral view of the right hip were obtained. COMPARISON: 02/21/2019 and 08/10/2019. FINDINGS: There has been interval total right hip arthroplasty. Expected soft tissue emphysema and overlying sk in slade. Visualized portion of bony pelvis intact with redemonstration of the total left hip arthr oplasty. No periprosthetic fracture or lucency. No malalignment of the right hip arthroplasty. IMPRESSION: Expected postsurgical appearance status post total right hip arthroplasty. Electronically signed by: Teddy Hinkle M.D. 10/02/2019 8:55 AM
--- NOTE | 2019-10-02 09:22 | Anesthesiology Progress Note ---
Date of Service October 02, 2019 Anesthesia Post Procedure Vital Signs Vital Signs: Temp Pulse Pulse Resp BP Pulse Ox 10/02/19 09:06 66 14 141/80 H 94 10/02/19 08:55 72 20 133/83 97 10/02/19 08:45 83 20 148/83 H 99 10/02/19 08:35 75 13 156/80 H 97 10/02/19 08:27 36.0 C L 67 19 163/85 H 100 10/02/19 05:37 37 C 20 L 20 151/97 H 96 Pain Intensity Right Hip: Pain Intensity: 0 Transfer of Care Handoff Completed per policy Notes Mental Status: alert / awake / arousable Patient Amnestic to Procedure: Yes Nausea / Vomiting: adequately controlled Pain: adequately controlled Airway Patency, RR, SpO2: stable & adequate BP & HR: stable & adequate Hydration State: stable & adequate Neuraxial Anesthesia: was administered and sensory block is resolving Anesthetic Complications: no major complications apparent and Pt Satisfied with anesthetic care
[2019-10-02] MEDS ORDERED: bisacodyL 10 MG SUPP PR PRN (09:55)
[2019-10-02] MEDS ORDERED: MULTIVITAMIN TAB PO SCH (09:55)
[2019-10-02] MEDS ORDERED: TAMSULOSIN HCL 0.4 MG CAP PO PRN (09:55)
[2019-10-02] MEDS ORDERED: MAGNESIUM HYDROXIDE SUSP 30 ML UDC PO PRN (09:55)
[2019-10-02] MEDS ORDERED: TRAMADOL HCL 50 MG TABLET PO PRN (09:55)
[2019-10-02] MEDS ORDERED: ALUMINUM/MAGNESIUM SUSP 30 ML UDC PO PRN (09:55)
[2019-10-02] MEDS: SODIUM CHLORIDE 0.9% 1000ML 1,000 ML IV SCH ×4 (10:46→20:19)
[2019-10-02] MEDS: CHOLECALCIFEROL 1,000 UNITS 25 MCG TAB PO SCH (11:38)
[2019-10-02] MEDS: MULTIVITAMIN TAB PO SCH (11:38)
[2019-10-02] MEDS: DOCUSATE SODIUM 100 MG CAP PO SCH ×2 (11:38→21:12)
[2019-10-02] MEDS: ASPIRIN 81 MG ECTAB PO SCH ×2 (11:39→21:12)
[2019-10-02] MEDS: CEFAZOLIN 2000MG 2,000 MG/15 ML SYR IV SCH ×2 (13:25→21:12)
[2019-10-02] MEDS: ACETAMINOPHEN 500 MG TAB PO SCH ×2 (13:25→21:12)
[2019-10-02] MEDS ORDERED: TRANEXAMIC ACID / 0.7% NACL 1,000 MG/100 ML BAG IV SCH (14:29)
[2019-10-02] MEDS: CHECK SCOPOLAMINE PATCH PLACEMENT SCH ×2 (15:28→23:56)
[2019-10-02] MEDS: FERROUS GLUCONATE 324 MG TAB PO SCH (17:08)
[2019-10-02] MEDS: ASCORBIC ACID 500 MG TAB PO SCH (17:09)
[2019-10-02] MEDS ORDERED: SENNA 8.6 MG TAB PO SCH (21:00)
--- NOTE | 2019-10-02 21:13 | Progress Note ---
DATE: 10/02/2019 SUBJECTIVE: A 54-year-old gentleman postop from right hip replacement. He is doing well. Not having any pain yet. No chest pain or shortness of breath. Not feeling dizzy or lightheaded. OBJECTIVE: VITAL SIGNS: Temperature is 36.7. Vital signs stable. GENERAL: Physical examination shows a pleasant, middle-aged male. He is lying in bed, looks comfortable. LUNGS: Clear to auscultation. HEART: Regular rate and rhythm. ABDOMEN: Soft, nontender, nondistended. EXTREMITIES: Grossly neurovascularly intact except as follows: Examination of the right lower extremity reveals the leg to be well aligned. Dressing is clean, dry and intact. His thigh is soft and supple. He can dorsiflex and plantarflex his foot appropriately. He is neurologically intact. X-RAYS: X-rays of the right hip from recovery room reviewed. It shows right uncemented total hip arthroplasty. Components looked to be in good position. No signs of problems. ASSESSMENT: A 54-year-old gentleman postop from right hip replacement, doing well. Hip is located. He is neurologically intact. Pain is controlled. PLAN: 1. DVT prophylaxis including thigh-high TEDs, SCDs, and aspirin twice a day. 2. PT/OT. Weight bear as tolerated. Right total hip protocol. 3. Pain control, doing well with current pain regimen. 4. IV antibiotics x24 hours. 5. Disposition: Plan to discharge to home with some home health once adequately recovered and medically stable.
[2019-10-03] MEDS ORDERED: HYDROmorphone INJ 0.5 MG/0.5 ML SYR IV PRN (00:57)
[2019-10-03] MEDS ORDERED: ONDANSETRON INJ 2 MG/ML 2 ML VIAL IV PRN (00:57)
[2019-10-03] MEDS ORDERED: METOCLOPRAMIDE HCL INJ 5 MG/ML 2 ML VIAL IV PRN (00:57)
[2019-10-03] MEDS: ACETAMINOPHEN 500 MG TAB PO SCH ×2 (05:43→13:48)
[2019-10-03 05:56] LABS: Basophils # (auto) 0.01 K/uL (0-0.2); Basophils % (auto) 0.1 %; Eosinophils # (auto) 0.09 K/uL (0-0.5); Eosinophils % (auto) 0.9 %; Hematocrit (blood only) 31.7 % (42-52); Hemoglobin 10.8 g/dL (14.0-18.0); Immature Granulocytes # (auto) 0.02 K/uL (0.00-0.02); Immature Granulocytes % (auto) 0.2 %; Lymphocytes # (auto) 0.58 K/uL (1.2-3.4); Lymphocytes % (auto) 5.5 %; Mean Corpuscular Hemoglobin 31.6 pg (25-34); Mean Corpuscular Hgb Conc 34.1 g/dL (32-36); Mean Corpuscular Volume 92.7 fL (80-100); Mean Platelet Volume 9.8 fL (7.4-10.4); Monocytes # (auto) 0.56 K/uL (0.11-0.59); Monocytes % (auto) 5.3 %; Neutrophils # (auto) 9.28 K/uL (1.4-6.5); Platelet Count 135 K/uL (130-400); RDW Coefficient of Variation 13.1 % (11.5-14.5); RDW Standard Deviation 44.3 fL (36.4-46.3); Red Blood Count 3.42 M/uL (4.7-6.1); White Blood Count 10.54 K/uL (4.8-10.8)
[2019-10-03] MEDS ORDERED: KETOROLAC 30 MG/ML VIAL IV SCH (06:00)
[2019-10-03 06:30] LABS: BUN Creatinine Ratio 13.9 (10-20); Calcium 8.3 mg/dl (8.5-10.1); Creatinine Clr Calc Pharmacy 56.4 ml/min; Est GFR (African American) 56.2; Est GFR (Non-African American) 48.5
[2019-10-03 07:27] VITALS: TEMP 98.6
[2019-10-03] MEDS: MULTIVITAMIN TAB PO SCH (09:03)
[2019-10-03] MEDS: DOCUSATE SODIUM 100 MG CAP PO SCH (09:03)
[2019-10-03] MEDS: CHOLECALCIFEROL 1,000 UNITS 25 MCG TAB PO SCH (09:03)
[2019-10-03] MEDS: FERROUS GLUCONATE 324 MG TAB PO SCH (09:03)
[2019-10-03] MEDS: ASPIRIN 81 MG ECTAB PO SCH (09:04)
[2019-10-03] MEDS: ASCORBIC ACID 500 MG TAB PO SCH (09:04)
[2019-10-03] MEDS: CHECK SCOPOLAMINE PATCH PLACEMENT SCH (09:04)
[2019-10-03 11:10] VITALS: BP 130/80; PULSE 64
--- NOTE | 2019-10-03 13:39 | Progress Note ---
DATE: 10/03/2019 SUBJECTIVE: A 54-year-old gentleman postop day 1 from right hip replacement. He is doing pretty well. Having a little bit more pain with this hip than the other one. No chest pain or shortness of breath. Not feeling dizzy or lightheaded. OBJECTIVE: VITAL SIGNS: Temperature 37.0. Vital signs stable. GENERAL: Shows a pleasant, middle-aged male. He is sitting up in his bedside chair, looks pretty comfortable. EXTREMITIES: Examination of the right hip and leg reveals the dressing to be clean, dry and intact. Thigh is soft and supple. He can dorsiflex and plantarflex his foot appropriately. He is neurologically intact. LABORATORY DATA: Hemoglobin 10.8. Hematocrit 31.7. Electrolytes are stable. His creatinine just slightly elevated at 1.60. ASSESSMENT: A 54-year-old gentleman postop day 1 from right hip replacement, doing pretty well. Pain is controlled. Hip is located. He is neurologically intact. Creatinine is a little bit elevated and will stop his Toradol. PLAN: 1. DVT prophylaxis including thigh-high TEDs, SCDs, and aspirin twice a day. 2. PT/OT. Weight bear as tolerated. Right total hip protocol. 3. Pain control, doing well with current pain regimen. 4. Elevated creatinine. We are going to stop his Toradol and just stick to Tylenol and tramadol in the hospital and oxycodone on discharge. 5. Disposition: Plan to discharge to home with some home health likely later today.
[2019-10-03 15:04] VITALS: O2SAT 98
--- NOTE | 2019-10-09 09:28 | Discharge Summary ---
DATE OF ADMISSION: 10/02/2019 DATE OF DISCHARGE: 10/03/2019 ADMITTING PHYSICIAN AND SURGEON: Dr. Anurag Magaña. ADMITTING DIAGNOSIS: Right hip degenerative joint disease. SURGERY PERFORMED: Right total hip arthroplasty. SECONDARY DIAGNOSIS: Noncontributory. CONSULTS: None obtained. HISTORY AND PHYSICAL EXAMINATION: Well documented in the patient's chart. HOSPITAL COURSE: The patient was admitted on 10/02/2019, underwent total hip arthroplasty, tolerated the procedure well. There were no complications. He was transferred to the PACU postoperatively and later to the orthopedic floor for further care. He was given Ancef for antibiotic prophylaxis, GUY stockings, SCDs and aspirin for DVT prophylaxis. Hemoglobin, hematocrit and vital signs were monitored. During his hospital stay, he remained stable. He did not require any blood transfusions. There were no complications. On postoperative day 1, he was tolerating a regular diet, pain was controlled with oral pain medicine. He was participating in physical therapy. Postop day 1, he was discharged home, set up with home health services. He was given printed discharge instructions including new prescriptions for extra strength Tylenol, aspirin and oxycodone. Continue his home medications, continue physical therapy, weightbearing as tolerated, GUY stockings. Follow up approximately 2 weeks postop or sooner if there are any problems or concerns.
== END 2019-10-03 14:28 | disposition home health service (06) | DRG 470 ==
LOC: ASU 05:03 → 3E 08:30